=== PATIENT | female | born 1965 ===

== ENCOUNTER 2022-03-30 05:17 | Day surgery (SDC) | payer OTHER ==
[~2022-03-30] VITALS: Ht 160 cm; Wt 94.3 kg
[~2022-03-30 05:17] MED LIST: ALPRAZOLAM ODT0.5 MG; DESVENLAFAXINE100 MG; EZALLOR SPRINKL10 MG; IRBESARTAN150 MG; LITHIUM; SYNTHROID125 MCG
== END 2022-03-30 13:00 | disposition home or self-care (01) ==
LOC: CIR.AMB 05:17
PROVIDERS: ATTEND Specialist
DX: D25.0 Submucous leiomyoma of uterus (principal); N72 Inflammatory disease of cervix uteri; Z20.822 Contact with and (suspected) exposure to COVID-19; Z88.8 Allergy status to other drugs, medicaments and biological substances; Z88.6 Allergy status to analgesic agent; Z88.2 Allergy status to sulfonamides

== ENCOUNTER 2023-01-23 14:12 | Outpatient (CLI) | payer OTHER | END 2023-01-23 23:00 | disposition home or self-care (01) | LOC: LAB 14:12 | PROVIDERS: ATTEND Obstetrics & Gynecology Gynecology | DX: D50.8 Other iron deficiency anemias (principal); R73.03 Prediabetes; D68.8 Other specified coagulation defects; N39.0 Urinary tract infection, site not specified; I10 Essential (primary) hypertension; R07.89 Other chest pain ==

== ENCOUNTER 2023-01-31 05:20 | Day surgery (SDC) | payer OTHER ==
[2023-01-31] MEDS ORDERED: MACROBID 100 M100 MG PO (09:00)
[2023-01-31] MEDS ORDERED: TRAM1TAB98 PO (09:01)
== END 2023-01-31 12:40 | disposition home or self-care (01) ==
LOC: CIR.AMB 05:20
PROVIDERS: ATTEND Obstetrics & Gynecology Gynecology
DX: N39.3 Stress incontinence (female) (male) (principal); Z20.822 Contact with and (suspected) exposure to COVID-19; Z88.2 Allergy status to sulfonamides; Z88.6 Allergy status to analgesic agent
CPT/HCPCS: 57288; C1771